=== PATIENT | female | born 1995 | race African-American/Black ===

== ENCOUNTER 2016-07-27 00:05 | Outpatient (CLI) | payer SELFPAY ==
[~2016-07-27] VITALS: Ht 175.3 cm; Wt 114.2 kg
[~2016-07-27 00:05] MED LIST: ALBU18HF INHALATION; CALC600T11 PO; FERR134T PO; PREN1TAB79 PO
[2016-07-27] MEDS ORDERED: TERBUTALINE 1 ML ONE (00:56)
[2016-07-27] MEDS ORDERED: TERBUTALINE 1 MG/ML INJ SC ONE (01:00)
[2016-07-27] MEDS ORDERED: CLINDAMYCIN 900 MG/D5W (PMX) 50 ML IV SCH (01:30)
[2016-07-27] MEDS ORDERED: OXYTOCIN 30 UNITS/LR 500 ML IV SCH (01:30)
[2016-07-27] MEDS ORDERED: CARBOPROST 250 MCG INJ IM PRN (01:30)
[2016-07-27] MEDS ORDERED: METHYLERGONOVINE 0.2 MG INJ IM PRN (01:30)
[2016-07-27] MEDS ORDERED: MISOPROSTOL 200 MCG TAB PR PRN (01:30)
[2016-07-27] MEDS ORDERED: OXYTOCIN 30 UNITS/LR 500 ML IV PRN (01:30)
--- NOTE | 2016-07-27 01:50 | HP ---
Date/Time of Note Date/Time of Note DATE: 07/27/16 TIME: 01:31 OB - History Hx of Present Free Text/Dictation 21 years old with IUP at 33 weeks and / with limited care at [facility]. and history of PTD in second and 4 th preganncy and contractions in current was admited on 07/12 for 4 days. Presented with painful contractions. Patient had signed AMA in the prior admission. she had been hospitalized for 4 days. received Magnesium for neuroprophylaxis and steriod x 2 doses. Refused ultrasound during her admission. Has been seen and counseled by perinatolovist DR. Griffin and after detailed and prolonged counseling again refused ultrasound. upon presentation to triage. she has been initially examined by RN., a hard strucure in the vagina was palpable but was not clear presentation. Exam repreated by me with the same finding, Shortly after presentation,.gross leakage of clear fluid noted on the chalks. A hard structure noted, could not r/o Breech, or transverse presentation . Patient refused any pelvic or abdominal ultrasound after prolonged counseling regarding risks to the baby in case of unclear presentation as well as risk for head entrapment or neglected shoulder in case of shoulder presenation. She started that she had no ultrasound after 22 weeks and does not wish to have any ultrasound in any circumstances. Past Ob history significant for history of delivery at 29 weeks in second and fourth delivery. Had CD at second and had TOLAC x 2. Had a history of at fourth at 29 weeks. Baby was apparently had cardiac arrythmia and after . Per records from prior admission , apparently there was some arrhythmia in the fetus in current as well and refused any ultrasound evaluation by perinatologist. Patient had been on weekly progesterone injection until 1 month ago at her OB clinic, her last visit was about 3 weeks ago and has not been given any IM progesterone. Patient refused repeat pelvic examination as well as any ultrasound examination after prolonged discussion about the risks to the fetus and her self in case of head entrapment as well as neglected shoulder including but not limited to or , terminal computer operator disability, materal complications and morbiditues including extension of section scar and increased risk for Hysterectomy , claissical section as well as blood transfusion and it;'s complications including but not limited to blood borne infections and transfiusion reacations, After discussion all above risks , patient still refused pelvic examination as well as ultrasound examination for assessment of presentation and candidacy for vaginal delivery. she verbalized understanding all above risks. Patient was advised about Cesrean section, but refused and desired to leave AMA. Other Concerns: labor Active labor Refused pelvic examination and ultrasound evaluation Past Family/Social History * Past Medical, Surgical, Family and Obstetric Histories reviewed from chart. OB Admission Exam Physical Exam HEENT: WNL Amniotic Fluid: Clear Intensity: Moderate OB Assessment/Plan Reason for admission: labor Other Assessment: History of section Declined any intervention including pelvic examination and ultrasound for evaluation after prolonged discussion by me and Dr. Silverman. understands all above risks and desired to leave against medical advise. KISHAN BANKS MD Jul 27, 2016 01:49
[2016-07-27 01:58] LABS: BASOPHIL # 0.1 10^3/ul (0.0-0.1); BASOPHILS % 0.8 % (0.0-2.0); EOSINOPHILS # 0.2 10^3/ul (0.0-0.5); EOSINOPHILS % 2.1 % (0.0-7.0); HEMATOCRIT 36.3 % (37.0-47.0); HEMOGLOBIN 12.2 g/dl (12.0-16.0); LYMPHOCYTES # 2.1 10^3/ul (0.8-2.9); LYMPHOCYTES % 26.2 % (15.0-51.0); MEAN CORPUSCULAR HEMOGLOBIN 30.3 pg (29.0-33.0); MEAN CORPUSCULAR HGB CONC 33.6 g/dl (32.0-37.0); MEAN CORPUSCULAR VOLUME 90.2 fl (82.0-101.0); MEAN PLATELET VOLUME 7.8 fl (7.4-10.4); MONOCYTE # 0.5 10^3/ul (0.3-0.9); MONOCYTES % 6.4 % (0.0-11.0); NEUTROPHIL # 5.2 10^3/ul (1.6-7.5); NEUTROPHILS % 64.5 % (39.0-77.0); PLATELET COUNT 291 10^3/UL (140-440); RED BLOOD COUNT 4.03 10^6/ul (4.20-5.40); RED CELL DISTRIBUTION WIDTH 12.7 % (11.5-14.5)
[2016-07-27] MEDS ORDERED: LACTATED RINGER'S 1,000 ML IV SCH (02:00)
[2016-07-27] MEDS ORDERED: LACTATED RINGER'S 1,000 ML IV PRN (02:00)
[2016-07-27 02:08] LABS: CONDITION 1
[2016-07-27] MEDS ORDERED: morphine SULFATE/PF (10 MG/10 ML) INJ ONE (02:18)
[2016-07-27] MEDS ORDERED: FENTAnyl 50 MCG/ML VIAL ONE (02:18)
[2016-07-27 02:23] LABS: INR 1.04; PROTIME 13.6 Sec (12.2-14.2); PT RATIO 1.1
[2016-07-27 02:24] LABS: PARTIAL THROMBOPLASTIN TIME 28.5 Sec (25.0-35.0)
[2016-07-27 02:55] VITALS: Ht 175.3 cm; Wt 114.2 kg
[2016-07-27 02:56] VITALS: BP 120/75; PULSE 117; RESP 20
--- NOTE | 2016-07-27 04:56 | TRIAGE ---
OB Triage Datetime Report Generated by CPN: 07/27/2016 04:54 Datetime: 07/27/2016 03:35 Stage of : Labor (Annotations: Patient discharged AMA per wheelchair.) Datetime: 07/27/2016 03:10 Stage of : Labor Pain Assessment Pain Scale: 4 Pain Presence: Intermittent Pain Type: Pressure Datetime: 07/27/2016 03:00 Labor Evaluation Frequency: 0 Monitor Mode: External Pattern: Normal: <= 5 Contractions in 10 Minutes Resting Tone [place]: Relaxed Heart Rate FHR Baseline Rate: 145 Monitor Mode: External US Variability: Marked >25 bpm Accelerations: 10X10 Decelerations: None Datetime: 07/27/2016 02:40 Stage of : Labor Datetime: 07/27/2016 02:10 Assessment Type: Admission Assessment Vaginal Bleeding: None Maternal Assessment Level of Consciousness: Fully Conscious DTR's/Clonus: DTRs 2+; No Clonus Headache: Denies Blurred Vision: No Respiratory Effort: Unlabored; Regular Rhythm; Equal Expansion Breath Sounds, Left: Clear and Equal Breath Sounds, Right: Clear and Equal Nausea/Vomiting: Denies RUQ Epigastric Pain: Denies Lower Extremities Edema: None Degree: None Upper Extremities Edema: None Facial Edema: None Fall Risk Assessment History of Falling: (0) No Secondary Diagnosis: (0) No Ambulatory Aid: (0) Bedrest/Nurse Assist IV Therapy: (0) No Gait: (0) Normal/Bedrest/Immobile Mental Status: (0) Oriented to Own Ability Fall Score: 0 Fall Risk Score Definition: No Risk: No action required Labor Evaluation Frequency: irregular Monitor Mode: External Duration (sec)2399: 30-40 Quality: Mild Pattern: Normal: <= 5 Contractions in 10 Minutes Resting Tone [place]: Relaxed Heart Rate FHR Baseline Rate: 145 Monitor Mode: External US Variability: Marked >25 bpm Accelerations: 10X10 Decelerations: None Category: Category II Pain Assessment Pain Scale: 0 Pain Presence: None/Denies Pain Type: N/A Pain Goal: 0 Membrane Status: Intact Datetime: 07/27/2016 01:00 Labor Evaluation Frequency: NONE Monitor Mode: External Pattern: Normal: <= 5 Contractions in 10 Minutes Heart Rate FHR Baseline Rate: 140 Variability: Moderate 6-25 bpm Accelerations: 15X15 Decelerations: None Category: Category I Datetime: 07/27/2016 00:53 Stage of : OB Triage Vaginal Exam Dilatation (cms): 10.0 Effacement (%): 100 Station: 0 Exam By: DR BANKS Membrane Status: Ruptured Membranes Rupture Method: Spontaneous Amniotic Fluid Color: Clear Amniotic Fluid Amount: Moderate Vaginal Bleeding: None Cervix, Position: Midposition Presentation 'A': Other Datetime: 07/27/2016 00:43 Vaginal Bleeding: None Cervix, Consistency: Soft Cervix, Position: Midposition Presentation 'A': Unable to Assess Datetime: 07/27/2016 00:36 Stage of : OB Triage Datetime: 07/27/2016 00:34 Time of Arrival: 07/27/2016 00:03 EGA: 33.3 Arrived By: Ambulatory Chief Complaint: contractions and pressure Movement: Present Contractions: Regular Time Contractions Began: 07/26/2016 17:00 Rupture of Membranes: Denies Vaginal Bleeding: None Vaginal Discharge: Denies Recent Sexual Intercouse: Denies Abdominal Trauma: Not Applicable Patient Complaints: Contractions Time Provider Notified: 07/27/2016 00:36 Provider Notified: ARDALAN Initial Plan: CEFM, CVL, UA, PO HYDRATION Datetime: 07/12/2016 01:12 Stage of : Antepartum Datetime: 07/12/2016 01:02 Headache: Denies Labor Evaluation Frequency: 0 Monitor Mode: External Duration (sec)2399: 0 Resting Tone [place]: Relaxed Heart Rate FHR Baseline Rate: 145 Monitor Mode: External US FHR Baseline Changes: No Baseline Change Variability: Marked >25 bpm Accelerations: 10X10 Decelerations: None Category: Category II Membrane Status: Intact Datetime: 07/12/2016 00:21 Assessment Type: Admission Assessment Vaginal Bleeding: None Maternal Assessment Level of Consciousness: Fully Conscious DTR's/Clonus: DTRs 2+; No Clonus Headache: Denies Blurred Vision: No Respiratory Effort: Unlabored; Regular Rhythm; Equal Expansion Breath Sounds, Left: Clear and Equal Breath Sounds, Right: Clear and Equal Nausea/Vomiting: Denies RUQ Epigastric Pain: Denies Lower Extremities Edema: None Degree: None Upper Extremities Edema: None Facial Edema: None Fall Risk Assessment History of Falling: (0) No Secondary Diagnosis: (0) No Ambulatory Aid: (0) Bedrest/Nurse Assist IV Therapy: (0) No Gait: (0) Normal/Bedrest/Immobile Mental Status: (0) Oriented to Own Ability Fall Score: 0 Fall Risk Score Definition: No Risk: No action required Labor Evaluation Frequency: 0 Duration (sec)2399: 0 Heart Rate FHR Baseline Rate: 145 Variability: Marked >25 bpm Accelerations: 10X10 Decelerations: None Category: Category II Pain Assessment Pain Scale: 0 Pain Presence: None/Denies Pain Type: N/A Pain Goal: 0 Pain Assessment Comments: PT STATES OCCASIONAL CHEST PAIN 5/10 ON INSPIRATION Membrane Status: Intact Datetime: 07/12/2016 00:00 Maternal Assessment Level of Consciousness: Fully Conscious DTR's/Clonus: DTRs 2+ Headache: Denies Blurred Vision: No Respiratory Effort: Unlabored Breath Sounds, Left: Clear and Equal Breath Sounds, Right: Clear and Equal Nausea/Vomiting: Denies RUQ Epigastric Pain: Denies Facial Edema: None Labor Evaluation Frequency: 0 Monitor Mode: External Intensity IUP (mmHg): 0 Resting Tone [place]: Relaxed Interventions: Side to Side Contraction Comments: PT STATES NO PAIN OR PRESSURE FELT Heart Rate FHR Baseline Rate: 145 Monitor Mode: External US FHR Baseline Changes: No Baseline Change Variability: Marked >25 bpm Accelerations: 10X10 Decelerations: None Category: Category II Comments: ARYTHMIA NOTED Pain Assessment Pain Scale: 0 Pain Presence: None/Denies Pain Type: N/A Membrane Status: Intact Datetime: 07/11/2016 23:19 Comments: report given to Miller RN Datetime: 07/11/2016 23:00 Maternal Assessment Level of Consciousness: Fully Conscious DTR's/Clonus: No Clonus Headache: Denies Blurred Vision: No Nausea/Vomiting: Denies RUQ Epigastric Pain: Denies Facial Edema: None Labor Evaluation Frequency: 0 Pattern: Normal: <= 5 Contractions in 10 Minutes Resting Tone [place]: Relaxed Heart Rate FHR Baseline Rate: 140 Monitor Mode: External US Variability: Moderate 6-25 bpm Decelerations: None Comments: MD Ellison made aware of the tracing Pain Assessment Pain Scale: 0 Pain Presence: None/Denies Pain Type: N/A Membrane Status: Intact Datetime: 07/11/2016 22:00 Labor Evaluation Frequency: 0 Pattern: Normal: <= 5 Contractions in 10 Minutes Resting Tone [place]: Relaxed Contraction Comments: ABDOMEN SOFT ON PALPATION Heart Rate FHR Baseline Rate: 140 Monitor Mode: External US Variability: Moderate 6-25 bpm Decelerations: None Comments: STRIP REVIEWD BY DR ELLISON. Datetime: 07/11/2016 21:05 Stage of : OB Triage Assessment Type: Triage Maternal Assessment Level of Consciousness: Fully Conscious DTR's/Clonus: DTRs 2+; No Clonus Headache: Denies Blurred Vision: No Respiratory Effort: Unlabored; Regular Rhythm; Equal Expansion Nausea/Vomiting: Denies RUQ Epigastric Pain: Denies Facial Edema: None Temperature Route: Oral Fall Risk Assessment History of Falling: (0) No Secondary Diagnosis: (0) No Ambulatory Aid: (0) Bedrest/Nurse Assist IV Therapy: (0) No Gait: (0) Normal/Bedrest/Immobile Mental Status: (0) Oriented to Own Ability Fall Score: 0 Fall Risk Score Definition: No Risk: No action required Datetime: 07/11/2016 21:00 Time of Arrival: 07/11/2016 21:00 EGA: 31.1 Arrived By: Transfer Arrived From: Emergency Dept Chief Complaint: Sob, PAIN AT THE CHEST AREA WHEN BREATHING. pt has been seen by ER where a EKG was done. DR Ellison notified of EKG results and patient status Movement: Present Contractions: Denies/Absent Rupture of Membranes: Denies Vaginal Bleeding: None Vaginal Discharge: Denies Recent Sexual Intercouse: Denies Abdominal Trauma: Not Applicable Patient Complaints: Shortness of Breath; Other Time Provider Notified: 07/11/2016 21:00 Provider Notified: reiche Initial Plan: MONITORS APPLY, CALL MD Datetime: 07/05/2016 14:37 Labor Evaluation Frequency: NO UC;S NOTED AT THIS TIME Monitor Mode: External Resting Tone [place]: Relaxed Heart Rate FHR Baseline Rate: 125 Monitor Mode: External US Variability: Moderate 6-25 bpm Accelerations: 15X15 Decelerations: None Category: Category I Pain Assessment Pain Scale: 5 Pain Presence: Intermittent Pain Type: Cramping; Dull Pain Location: Abdomen; Back Pain Goal: 2 Pain Relief Measures: Comfort Measures Datetime: 07/05/2016 14:15 Labor Evaluation Frequency: NO UC'S NOTED AT THIS TIME Monitor Mode: External Duration (sec)2399: Resting Tone [place]: Relaxed Resting Tone IUP (mmHg): Heart Rate FHR Baseline Rate: 125 Monitor Mode: External US FHR Baseline Changes: No Baseline Change Variability: Moderate 6-25 bpm Accelerations: 15X15 Decelerations: None Category: Category I Comments: loss contact due to position Datetime: 07/05/2016 13:00 Labor Evaluation Frequency: NO UC'S NOTED AT THIS TIME Monitor Mode: External Resting Tone [place]: Relaxed Heart Rate FHR Baseline Rate: 120 Monitor Mode: External US Variability: Moderate 6-25 bpm Accelerations: 15X15 Decelerations: None Category: Category I Datetime: 07/05/2016 11:59 Labor Evaluation Frequency: NO UC'S NOTED AT THIS TIME Monitor Mode: External Resting Tone [place]: Relaxed Heart Rate FHR Baseline Rate: 120 Monitor Mode: External US Variability: Moderate 6-25 bpm Accelerations: 15X15 Decelerations: None Category: Category I Datetime: 07/05/2016 11:48 Maternal Assessment Level of Consciousness: Fully Conscious DTR's/Clonus: No Clonus Headache: Denies Blurred Vision: No Nausea/Vomiting: Denies RUQ Epigastric Pain: Denies Facial Edema: None Datetime: 07/05/2016 11:42 Comments: LOSS OF CONTACT MATERNAL PULSE NOTED Datetime: 07/05/2016 11:00 Labor Evaluation Frequency: NO UC'S NOTED AT THIS TIME Monitor Mode: External Resting Tone [place]: Relaxed Heart Rate FHR Baseline Rate: 115 Monitor Mode: External US Variability: Moderate 6-25 bpm Accelerations: 15X15 Decelerations: None Datetime: 07/05/2016 10:00 Labor Evaluation Frequency: NO UC'S NOTED AT THIS TIME Monitor Mode: External Resting Tone [place]: Relaxed Heart Rate FHR Baseline Rate: 115 Monitor Mode: External US Variability: Moderate 6-25 bpm Decelerations: Variable Datetime: 07/05/2016 09:10 Stage of : Labor Datetime: 07/05/2016 08:56 Labor Evaluation Frequency: NO UC'S NOTED AT THIS TIME Monitor Mode: External Resting Tone [place]: Relaxed Monitor Mode: External US Variability: Moderate 6-25 bpm Decelerations: Variable Category: Category II Datetime: 07/05/2016 08:38 Pain Assessment Pain Scale: 5 Pain Presence: Intermittent Pain Type: Cramping; Contraction Pain Location: Abdomen; Back Pain Goal: 2 Pain Relief Measures: Comfort Measures Datetime: 07/05/2016 08:28 Interventions: Side to Side Datetime: 07/05/2016 08:26 Maternal Assessment Level of Consciousness: Fully Conscious DTR's/Clonus: DTRs 2+; No Clonus Headache: Denies Blurred Vision: No Nausea/Vomiting: Denies RUQ Epigastric Pain: Denies Facial Edema: None Datetime: 07/05/2016 08:12 Stage of : Labor Datetime: 07/05/2016 07:49 Interventions: Side to Side Datetime: 07/05/2016 07:32 Heart Rate FHR Baseline Rate: 120 Monitor Mode: External US Variability: Moderate 6-25 bpm Comments: UNABLE TO KEEP BABY ON MONITOR AUDIBLE FHR NOTED AT 120 VIA U/S EXTERNAL MONITOR Datetime: 07/05/2016 07:30 Assessment Type: Ongoing Assessment Maternal Assessment Level of Consciousness: Fully Conscious DTR's/Clonus: DTRs 2+; No Clonus Headache: Denies Blurred Vision: No Respiratory Effort: Unlabored; Regular Rhythm; Equal Expansion Breath Sounds, Left: Clear and Equal Breath Sounds, Right: Clear and Equal Nausea/Vomiting: Denies RUQ Epigastric Pain: Denies Lower Extremities Edema: None Degree: None Upper Extremities Edema: None Degree: None Facial Edema: None Fall Risk Assessment History of Falling: (0) No Secondary Diagnosis: (0) No Ambulatory Aid: (0) Bedrest/Nurse Assist Gait: (0) Normal/Bedrest/Immobile Mental Status: (0) Oriented to Own Ability Datetime: 07/05/2016 06:30 Heart Rate FHR Baseline Rate: 130 Monitor Mode: Doppler Datetime: 07/05/2016 06:00 Heart Rate FHR Baseline Rate: 130 Monitor Mode: Doppler Datetime: 07/05/2016 05:46 Stage of : Labor Monitor Mode: External Contraction Comments: HAVE BEEN ADJUSTING PATIENT'S US EVERY FEW MINUTES WITH NO SUCCESS. FHTS AUD IBLE AT 120S BUT UNABLE TO KEEP BABY ON THE MONITOR. Datetime: 07/05/2016 05:00 Heart Rate FHR Baseline Rate: 130 Monitor Mode: Doppler Datetime: 07/05/2016 04:44 Monitor Mode: External US Datetime: 07/05/2016 04:04 Comments: at bedside trying to adjust u_s to hot die picker fht's Datetime: 07/05/2016 04:01 Labor Evaluation Frequency: none Monitor Mode: External Pattern: Normal: <= 5 Contractions in 10 Minutes Resting Tone [place]: Relaxed Heart Rate FHR Baseline Rate: 125 Monitor Mode: External US Datetime: 07/05/2016 03:05 Labor Evaluation Frequency: none Monitor Mode: External Resting Tone [place]: Relaxed Heart Rate FHR Baseline Rate: 135 Monitor Mode: External US FHR Baseline Changes: No Baseline Change Comments: unable to keep continuous tracing of fht's, u_s readjusted Datetime: 07/05/2016 02:00 Labor Evaluation Frequency: NONE Monitor Mode: External Pattern: Normal: <= 5 Contractions in 10 Minutes Resting Tone [place]: Relaxed Heart Rate FHR Baseline Rate: 130 Monitor Mode: External US Variability: Moderate 6-25 bpm Decelerations: None Category: Category I Pain Assessment Pain Scale: 5 Pain Presence: Intermittent Pain Type: Pressure; Ache Pain Location: Abdomen; Back; Perineum Pain Relief Measures: Comfort Measures Pain Assessment Comments: RESTING Datetime: 07/05/2016 01:00 Labor Evaluation Frequency: NONE Monitor Mode: External Pattern: Normal: <= 5 Contractions in 10 Minutes Resting Tone [place]: Relaxed Heart Rate FHR Baseline Rate: 130 Monitor Mode: External US Variability: Moderate 6-25 bpm Accelerations: 15X15 Decelerations: None Category: Category I Datetime: 07/05/2016 00:01 Labor Evaluation Frequency: X1 Monitor Mode: External Duration (sec)2399: 50 Pattern: Normal: <= 5 Contractions in 10 Minutes Resting Tone [place]: Relaxed Heart Rate FHR Baseline Rate: 130 Monitor Mode: External US Variability: Moderate 6-25 bpm Accelerations: 15X15 Decelerations: None Category: Category I Pain Assessment Pain Scale: 8 Pain Presence: Constant Pain Type: Pressure; Ache Pain Location: Abdomen; Back; Perineum Pain Relief Measures: Comfort Measures Datetime: 07/04/2016 23:21 Pool: Negative Datetime: 07/04/2016 23:19 Vaginal Exam Dilatation (cms): 0.0 Exam By: DR.REICHE Vaginal Bleeding: None Cervix, Consistency: Soft Datetime: 07/04/2016 23:00 Labor Evaluation Frequency: OCCASIONAL Monitor Mode: External Duration (sec)2399: 40-70 Pattern: Normal: <= 5 Contractions in 10 Minutes Resting Tone [place]: Relaxed Heart Rate FHR Baseline Rate: 130 Monitor Mode: External US Variability: Moderate 6-25 bpm Accelerations: 15X15 Decelerations: None Category: Category I Pain Assessment Pain Scale: 8 Pain Presence: Constant Pain Type: Pressure; Ache Pain Location: Abdomen; Back; Perineum Pain Relief Measures: Comfort Measures Datetime: 07/04/2016 22:25 Exam By: EDITA, RN Cervix, Consistency: Soft Datetime: 07/04/2016 22:01 Monitor Mode: External Pattern: Normal: <= 5 Contractions in 10 Minutes Resting Tone [place]: Relaxed Contraction Comments: NO CONTRACTIONS NOTED UPON PALPATION Heart Rate FHR Baseline Rate: 130 Monitor Mode: External US Variability: Moderate 6-25 bpm Accelerations: 10X10 Decelerations: None Category: Category I Pain Assessment Pain Scale: 8 Pain Presence: Intermittent Pain Type: Pressure; Ache Pain Location: Abdomen; Back; Perineum Pain Relief Measures: Comfort Measures Datetime: 07/04/2016 21:52 Contraction Comments: Patient's hands on stomach. Requested for patient not to touch stomach due t o difficulty reading contractions. Datetime: 07/04/2016 21:01 Monitor Mode: External Pattern: Normal: <= 5 Contractions in 10 Minutes Resting Tone [place]: Relaxed Contraction Comments: unable to determine contractions. Heart Rate FHR Baseline Rate: 130 Monitor Mode: External US Variability: Moderate 6-25 bpm Accelerations: 10X10 Decelerations: None Category: Category I Pain Assessment Pain Scale: 8 Pain Presence: Constant Pain Type: Pressure; Ache Pain Location: Abdomen; Back; Perineum Pain Relief Measures: Comfort Measures Datetime: 07/04/2016 20:19 Pain Assessment Pain Scale: 8 Pain Presence: Constant Pain Type: Pressure; Ache Pain Location: Abdomen; Back; Perineum Pain Relief Measures: Comfort Measures Pain Assessment Comments: THERAPEUTIC TOUCH AND EMOTIONAL SUPPORT GIVEN TO PATIENT. Datetime: 07/04/2016 20:00 Assessment Type: Ongoing Assessment Maternal Assessment Level of Consciousness: Fully Conscious DTR's/Clonus: DTRs 2+; No Clonus Headache: Denies Blurred Vision: No Respiratory Effort: Unlabored; Regular Rhythm; Equal Expansion Breath Sounds, Left: Clear and Equal Breath Sounds, Right: Clear and Equal Nausea/Vomiting: Denies RUQ Epigastric Pain: Denies Lower Extremities Edema: None Degree: None Upper Extremities Edema: None Degree: None Facial Edema: None Temperature Route: Oral Fall Risk Assessment History of Falling: (0) No Secondary Diagnosis: (0) No Ambulatory Aid: (0) Bedrest/Nurse Assist IV Therapy: (20) Yes Gait: (0) Normal/Bedrest/Immobile Mental Status: (0) Oriented to Own Ability Fall Score: 20 Fall Risk Score Definition: No Risk: No action required Monitor Mode: External Pattern: Normal: <= 5 Contractions in 10 Minutes Resting Tone [place]: Relaxed Contraction Comments: unable to determine contractions. Heart Rate FHR Baseline Rate: 135 Monitor Mode: External US Variability: Moderate 6-25 bpm Accelerations: 10X10 Decelerations: None Category: Category I Pain Presence: Constant Pain Type: Pressure; Ache Pain Location: Abdomen; Back; Perineum Pain Relief Measures: Comfort Measures Datetime: 07/04/2016 18:53 Labor Evaluation Frequency: 2-4 Monitor Mode: External Duration (sec)2399: 30-50 Quality: Mild Pattern: Normal: <= 5 Contractions in 10 Minutes Resting Tone [place]: Relaxed Heart Rate FHR Baseline Rate: 135 Monitor Mode: External US FHR Baseline Changes: No Baseline Change Variability: Moderate 6-25 bpm Accelerations: 15X15 Decelerations: None Category: Category I Pain Assessment Pain Scale: 7 Pain Presence: Intermittent Pain Type: Cramping Pain Location: Abdomen Pain Relief Measures: Comfort Measures Datetime: 07/04/2016 18:32 Vaginal Exam Dilatation (cms): 0.0 Effacement (%): 50 Station: -3 Exam By: DR HENRRY Datetime: 07/04/2016 18:07 Stage of : Labor Assessment Type: Admission Assessment Vaginal Bleeding: None Maternal Assessment Level of Consciousness: Fully Conscious Maternal Assessment Level of Consciousness: Fully Conscious DTR's/Clonus: DTRs 2+; No Clonus DTR's/Clonus: DTRs 2+; No Clonus Headache: Denies Headache: Denies Blurred Vision: No Blurred Vision: No Respiratory Effort: Unlabored; Regular Rhythm; Equal Expansion Breath Sounds, Left: Clear and Equal Breath Sounds, Right: Clear and Equal Nausea/Vomiting: Denies Nausea/Vomiting: Denies RUQ Epigastric Pain: Denies RUQ Epigastric Pain: Denies Lower Extremities Edema: None Degree: None Upper Extremities Edema: None Degree: None Facial Edema: None Facial Edema: None Fall Risk Assessment History of Falling: (0) No Secondary Diagnosis: (0) No Ambulatory Aid: (0) Bedrest/Nurse Assist IV Therapy: (0) No Gait: (0) Normal/Bedrest/Immobile Mental Status: (0) Oriented to Own Ability Fall Score: 0 Fall Risk Score Definition: No Risk: No action required Labor Evaluation Frequency: 3-6 Monitor Mode: External Duration (sec)2399: 20-50 Quality: Mild Pattern: Normal: <= 5 Contractions in 10 Minutes Resting Tone [place]: Relaxed Heart Rate FHR Baseline Rate: 135 Monitor Mode: External US FHR Baseline Changes: No Baseline Change Variability: Moderate 6-25 bpm Accelerations: 15X15 Decelerations: None Category: Category I Pain Assessment Pain Scale: 9 Pain Presence: Intermittent Pain Type: Cramping Pain Location: Abdomen Pain Relief Measures: Comfort Measures Datetime: 07/04/2016 16:17 Stage of : Antepartum Datetime: 07/04/2016 15:57 Pain Assessment Pain Scale: 7 Pain Presence: Intermittent Pain Type: Contraction Pain Location: Abdomen; Right Buttock; Left Buttock Pain Relief Measures: Comfort Measures Pain Assessment Comments: laborist notified Datetime: 07/04/2016 15:47 Labor Evaluation Frequency: 1-10 Monitor Mode: External Duration (sec)2399: 40-60 Quality: Mild Pattern: Normal: <= 5 Contractions in 10 Minutes Resting Tone [place]: Relaxed Heart Rate FHR Baseline Rate: 130 Monitor Mode: External US FHR Baseline Changes: No Baseline Change Variability: Moderate 6-25 bpm Decelerations: None Category: Category I Datetime: 07/04/2016 15:00 Labor Evaluation Frequency: 5/60 Monitor Mode: External Duration (sec)2399: 40-60 Quality: Mild Pattern: Normal: <= 5 Contractions in 10 Minutes Resting Tone [place]: Relaxed Heart Rate FHR Baseline Rate: 140 Monitor Mode: External US FHR Baseline Changes: No Baseline Change Variability: Moderate 6-25 bpm Decelerations: None Category: Category I Datetime: 07/04/2016 14:00 Labor Evaluation Frequency: 4/60 Monitor Mode: External Quality: Mild Pattern: Normal: <= 5 Contractions in 10 Minutes Resting Tone [place]: Relaxed Contraction Comments: irritability Heart Rate FHR Baseline Rate: 145 Monitor Mode: External US FHR Baseline Changes: No Baseline Change Variability: Moderate 6-25 bpm Decelerations: None Category: Category I Datetime: 07/04/2016 13:00 Heart Rate FHR Baseline Rate: 145 Monitor Mode: External US FHR Baseline Changes: No Baseline Change Variability: Moderate 6-25 bpm Decelerations: None Category: Category I Datetime: 07/04/2016 12:59 Labor Evaluation Frequency: 2/60 Monitor Mode: External Duration (sec)2399: 40-60 Quality: Mild Pattern: Normal: <= 5 Contractions in 10 Minutes Resting Tone [place]: Relaxed Contraction Comments: irritability present Datetime: 07/04/2016 12:17 Comments: back on monitor after shower Datetime: 07/04/2016 11:50 Labor Evaluation Frequency: 0 Quality: Mild Pattern: Normal: <= 5 Contractions in 10 Minutes Resting Tone [place]: Relaxed Heart Rate FHR Baseline Rate: 135 Monitor Mode: External US FHR Baseline Changes: No Baseline Change Variability: Moderate 6-25 bpm Decelerations: None Category: Category I Datetime: 07/04/2016 11:00 Labor Evaluation Frequency: 0 Monitor Mode: External Quality: Mild Pattern: Normal: <= 5 Contractions in 10 Minutes Resting Tone [place]: Relaxed Heart Rate FHR Baseline Rate: 135 FHR Baseline Changes: No Baseline Change Variability: Moderate 6-25 bpm Decelerations: None Datetime: 07/04/2016 10:00 Labor Evaluation Frequency: 0 Resting Tone [place]: Relaxed Contraction Comments: no contractions Heart Rate FHR Baseline Rate: 135 Monitor Mode: External US FHR Baseline Changes: No Baseline Change Variability: Moderate 6-25 bpm Datetime: 07/04/2016 09:16 Stage of : Antepartum Assessment Type: Ongoing Assessment Maternal Assessment Level of Consciousness: Fully Conscious DTR's/Clonus: DTRs 2+; No Clonus Headache: Denies Blurred Vision: No Respiratory Effort: Unlabored; Regular Rhythm; Equal Expansion Breath Sounds, Left: Clear and Equal Breath Sounds, Right: Clear and Equal Nausea/Vomiting: Denies RUQ Epigastric Pain: Denies Facial Edema: None Temperature Route: Oral Fall Risk Assessment History of Falling: (0) No Secondary Diagnosis: (0) No Ambulatory Aid: (0) Bedrest/Nurse Assist IV Therapy: (0) No Gait: (0) Normal/Bedrest/Immobile Mental Status: (0) Oriented to Own Ability Fall Score: 0 Fall Risk Score Definition: No Risk: No action required Datetime: 07/04/2016 09:00 Labor Evaluation Frequency: 0 Pattern: Normal: <= 5 Contractions in 10 Minutes Resting Tone [place]: Relaxed Heart Rate FHR Baseline Rate: 135 Monitor Mode: External US FHR Baseline Changes: No Baseline Change Variability: Moderate 6-25 bpm Decelerations: None Category: Category I Datetime: 07/04/2016 08:00 Labor Evaluation Frequency: 0 Monitor Mode: External Resting Tone [place]: Relaxed Heart Rate FHR Baseline Rate: 135 FHR Baseline Changes: No Baseline Change Variability: Moderate 6-25 bpm Decelerations: None Category: Category I Comments: periods of apparent marked variability Datetime: 07/04/2016 07:00 Labor Evaluation Frequency: 0 Monitor Mode: External Heart Rate FHR Baseline Rate: 130 Monitor Mode: External US FHR Baseline Changes: No Baseline Change Comments: MANY ATTEMPTS FOR SOLID, CLEAR TRACING. DIFFICULT TO ASCERTAIN VARIABILTY VS BL. Datetime: 07/04/2016 06:00 Labor Evaluation Frequency: 0 Monitor Mode: External Monitor Mode: External US Comments: POOR QUALITY WHILE SLEEPING ON HER LEFT SIDE Datetime: 07/04/2016 04:07 Maternal Assessment Level of Consciousness: SLEEPING DTR's/Clonus: DTRs 1+ Breath Sounds, Left: Clear and Equal Breath Sounds, Right: Clear and Equal Temperature Route: Oral Pain Assessment Pain Scale: 0 Pain Goal: 0 Datetime: 07/04/2016 04:00 Labor Evaluation Frequency: 0 Monitor Mode: External Monitor Mode: External US Comments: POOR QUALITY WHILE SLEEPING ON HER SIDE Datetime: 07/04/2016 03:00 Labor Evaluation Frequency: 0 Monitor Mode: External Monitor Mode: External US Comments: POOR QUALITY Datetime: 07/04/2016 02:00 Labor Evaluation Frequency: 0 Monitor Mode: External Heart Rate FHR Baseline Rate: 140 Monitor Mode: External US Comments: POOR QUALITY Datetime: 07/04/2016 01:00 Labor Evaluation Frequency: 0 Monitor Mode: External Heart Rate FHR Baseline Rate: 135 Monitor Mode: External US FHR Baseline Changes: No Baseline Change Variability: Marked >25 bpm Accelerations: 15X15 Decelerations: None Category: Category II Datetime: 07/04/2016 00:00 Labor Evaluation Frequency: 0 Monitor Mode: External Datetime: 07/03/2016 23:00 Labor Evaluation Frequency: 0 Monitor Mode: External Heart Rate FHR Baseline Rate: 140 Monitor Mode: External US Comments: POOR QUALITY Datetime: 07/03/2016 22:30 Maternal Assessment Level of Consciousness: Fully Conscious DTR's/Clonus: DTRs 1+ Breath Sounds, Left: Clear and Equal Breath Sounds, Right: Clear and Equal Datetime: 07/03/2016 22:00 Labor Evaluation Frequency: 0 Monitor Mode: External Heart Rate FHR Baseline Rate: 140 Monitor Mode: External US FHR Baseline Changes: No Baseline Change Variability: Marked >25 bpm Accelerations: 15X15 Decelerations: None Category: Category II Comments: DIFFICULT TO DETERMINE VARIABILITY VS BL Datetime: 07/03/2016 21:00 Labor Evaluation Frequency: 0 Monitor Mode: External Heart Rate FHR Baseline Rate: 140 Monitor Mode: External US FHR Baseline Changes: No Baseline Change Variability: Marked >25 bpm Accelerations: 15X15 Decelerations: None Category: Category II Comments: DIIFFICULT TO DETERMINE VARIABILITY Datetime: 07/03/2016 20:10 Maternal Assessment Level of Consciousness: Fully Conscious DTR's/Clonus: DTRs 2+; No Clonus Headache: Denies Blurred Vision: No Respiratory Effort: Unlabored; Regular Rhythm; Equal Expansion Breath Sounds, Left: Clear and Equal Breath Sounds, Right: Clear and Equal Nausea/Vomiting: Denies RUQ Epigastric Pain: Denies Lower Extremities Edema: None Upper Extremities Edema: None Facial Edema: None Fall Risk Assessment History of Falling: (0) No Secondary Diagnosis: (0) No Ambulatory Aid: (0) Bedrest/Nurse Assist IV Therapy: (20) Yes Gait: (0) Normal/Bedrest/Immobile Mental Status: (0) Oriented to Own Ability Fall Score: 20 Fall Risk Score Definition: No Risk: No action required Datetime: 07/03/2016 20:06 Temperature Route: Oral Pain Assessment Pain Scale: 5 Pain Presence: Constant Pain Type: Pressure; Ache Pain Location: Abdomen; Back Pain Goal: 3 Pain Relief Measures: Comfort Measures Datetime: 07/03/2016 19:59 Labor Evaluation Frequency: 0 Monitor Mode: External Heart Rate FHR Baseline Rate: 140 Monitor Mode: External US FHR Baseline Changes: No Baseline Change Variability: Marked >25 bpm Accelerations: 15X15 Decelerations: None Category: Category II Comments: DIFFICULT TO DETERMINE VARIABILTY IT IS NOT A CLEAN TRACING BUT LOOKS THE SAME THRU [facility] [place]. Datetime: 07/03/2016 19:15 Stage of : Antepartum Datetime: 07/03/2016 19:02 Stage of : Antepartum Maternal Assessment Level of Consciousness: Fully Conscious Headache: Denies Nausea/Vomiting: Denies RUQ Epigastric Pain: Denies Labor Evaluation Frequency: 0/hr Monitor Mode: External Heart Rate FHR Baseline Rate: 135 Monitor Mode: External US Variability: moderate to marked throughout shift. Decelerations: None Vaginal Bleeding: None Datetime: 07/03/2016 18:11 Stage of : Antepartum Maternal Assessment Level of Consciousness: Fully Conscious Headache: Denies Nausea/Vomiting: Denies RUQ Epigastric Pain: Denies Labor Evaluation Frequency: 0/hr Monitor Mode: External Heart Rate FHR Baseline Rate: 135 Monitor Mode: External US Variability: moderate to marked throughout shift. Decelerations: None Vaginal Bleeding: None Datetime: 07/03/2016 17:02 Stage of : Antepartum Maternal Assessment Level of Consciousness: Fully Conscious Headache: Denies Nausea/Vomiting: Denies RUQ Epigastric Pain: Denies Labor Evaluation Frequency: 0/hr Monitor Mode: External Heart Rate FHR Baseline Rate: 135 Monitor Mode: External US Variability: moderate to marked throughout shift. Decelerations: None Pain Assessment Pain Scale: 0 Pain Presence: None/Denies Vaginal Bleeding: None Datetime: 07/03/2016 16:30 Pain Presence: None/Denies Datetime: 07/03/2016 16:18 Pain Presence: None/Denies Datetime: 07/03/2016 16:10 Stage of : Antepartum Maternal Assessment Level of Consciousness: Fully Conscious DTR's/Clonus: DTRs 2+ Headache: Denies Nausea/Vomiting: Denies RUQ Epigastric Pain: Denies (Annotations: resolved w/ bicitra) Labor Evaluation Frequency: 0/hr Monitor Mode: External Heart Rate FHR Baseline Rate: 135 Monitor Mode: External US Variability: Marked >25 bpm Accelerations: 15X15 Decelerations: None (Annotations: no audible decels noted) Pain Assessment Pain Scale: 0 Pain Presence: None/Denies Pain Assessment Comments: epigastric pain is resolved Vaginal Bleeding: None Datetime: 07/03/2016 15:04 Stage of : Antepartum Maternal Assessment Level of Consciousness: Fully Conscious DTR's/Clonus: DTRs 2+ Headache: Denies Breath Sounds, Left: Clear and Equal Breath Sounds, Right: Clear and Equal Nausea/Vomiting: Denies RUQ Epigastric Pain: Present Datetime: 07/03/2016 15:00 Pain Assessment Pain Scale: 4 Pain Type: Burning Pain Assessment Comments: epigastric Datetime: 07/03/2016 14:59 Comments: visible movements and palpated by rn Datetime: 07/03/2016 14:52 Comments: increased movements Datetime: 07/03/2016 14:02 Stage of : Antepartum Maternal Assessment Level of Consciousness: Fully Conscious Headache: Denies Nausea/Vomiting: Denies RUQ Epigastric Pain: Denies Labor Evaluation Frequency: 0/hr Monitor Mode: External Heart Rate FHR Baseline Rate: 125 Monitor Mode: External US Variability: Marked >25 bpm Accelerations: 15X15 Comments: audible arrythmia and tracing is not smooth and continous Pain Assessment Pain Scale: 0 Pain Presence: None/Denies Vaginal Bleeding: None Datetime: 07/03/2016 13:23 Resting Tone [place]: Relaxed Comments: baby difficlt to monitor w/ movements. rn palpates movements Comments: visible movement noted by rn Pain Presence: None/Denies Datetime: 07/03/2016 13:21 Stage of : Antepartum Temperature Route: Oral Datetime: 07/03/2016 13:16 Stage of : Antepartum Maternal Assessment Level of Consciousness: Fully Conscious Headache: Denies Nausea/Vomiting: Denies RUQ Epigastric Pain: Denies Labor Evaluation Frequency: 0/hr Monitor Mode: External Heart Rate FHR Baseline Rate: 135 Monitor Mode: External US Variability: Marked >25 bpm Accelerations: 15X15 Pain Assessment Pain Scale: 0 Pain Presence: None/Denies Vaginal Bleeding: None Datetime: 07/03/2016 12:16 Stage of : Antepartum Maternal Assessment Level of Consciousness: Fully Conscious Headache: Denies Nausea/Vomiting: Denies RUQ Epigastric Pain: Denies Labor Evaluation Frequency: 0/hr Monitor Mode: External Heart Rate FHR Baseline Rate: 135 Monitor Mode: External US Variability: Marked >25 bpm Accelerations: 15X15 Pain Assessment Pain Scale: 0 Pain Presence: None/Denies Vaginal Bleeding: None Datetime: 07/03/2016 11:17 Stage of : Antepartum Maternal Assessment Level of Consciousness: Fully Conscious DTR's/Clonus: DTRs 2+ Headache: Denies Nausea/Vomiting: Denies RUQ Epigastric Pain: Denies Labor Evaluation Frequency: 0/hr Monitor Mode: External Heart Rate FHR Baseline Rate: 135 Monitor Mode: External US Variability: Marked >25 bpm Accelerations: 15X15 Decelerations: None Pain Assessment Pain Scale: 0 Pain Presence: None/Denies Vaginal Bleeding: None Datetime: 07/03/2016 10:52 Pain Presence: None/Denies Datetime: 07/03/2016 10:16 Stage of : Antepartum Maternal Assessment Level of Consciousness: Fully Conscious Headache: Denies Nausea/Vomiting: Denies RUQ Epigastric Pain: Denies Labor Evaluation Frequency: 0/hr Monitor Mode: External Heart Rate FHR Baseline Rate: 135 Monitor Mode: External US Variability: Moderate 6-25 bpm (Annotations: audible arrythmia) Accelerations: 15X15 Decelerations: None Pain Assessment Pain Scale: 0 Pain Presence: None/Denies Vaginal Bleeding: None Datetime: 07/03/2016 09:24 Comments: possible audible arrythmia heard by lissette rn and dr. crouch Datetime: 07/03/2016 09:18 Assessment Type: Ongoing Assessment Maternal Assessment Level of Consciousness: Fully Conscious DTR's/Clonus: DTRs 2+ Headache: Denies Blurred Vision: No Respiratory Effort: Unlabored Breath Sounds, Left: Clear and Equal Breath Sounds, Right: Clear and Equal Nausea/Vomiting: Denies RUQ Epigastric Pain: Denies Lower Extremities Edema: None Upper Extremities Edema: None Facial Edema: None Fall Risk Assessment History of Falling: (0) No Secondary Diagnosis: (0) No Ambulatory Aid: (0) Bedrest/Nurse Assist IV Therapy: (20) Yes Gait: (0) Normal/Bedrest/Immobile Mental Status: (0) Oriented to Own Ability Fall Score: 20 Fall Risk Score Definition: No Risk: No action required Datetime: 07/03/2016 08:30 Stage of : Antepartum Assessment Type: Ongoing Assessment Maternal Assessment Level of Consciousness: Fully Conscious DTR's/Clonus: DTRs Absent Headache: Denies Blurred Vision: No Respiratory Effort: Unlabored; Regular Rhythm; Equal Expansion Breath Sounds, Left: Clear and Equal Breath Sounds, Right: Clear and Equal Nausea/Vomiting: Denies RUQ Epigastric Pain: Denies Lower Extremities Edema: None Upper Extremities Edema: None Facial Edema: None Fall Risk Assessment History of Falling: (0) No Secondary Diagnosis: (0) No Ambulatory Aid: (0) Bedrest/Nurse Assist IV Therapy: (20) Yes Gait: (0) Normal/Bedrest/Immobile Mental Status: (0) Oriented to Own Ability Fall Score: 20 Fall Risk Score Definition: No Risk: No action required Datetime: 07/03/2016 08:00 Maternal Assessment Level of Consciousness: Fully Conscious DTR's/Clonus: DTRs 1+ Headache: Denies Blurred Vision: No Nausea/Vomiting: Denies RUQ Epigastric Pain: Denies Facial Edema: None Labor Evaluation Frequency: 6-12 Monitor Mode: External Duration (sec)2399: 10-30 Quality: Mild Resting Tone [place]: Relaxed Heart Rate FHR Baseline Rate: 130 Monitor Mode: External US Variability: Moderate 6-25 bpm Accelerations: 15X15 Category: Category I Pain Assessment Pain Scale: 2 Pain Presence: Intermittent Pain Type: Cramping Pain Location: Abdomen Pain Goal: 3 Pain Relief Measures: Comfort Measures Pain Assessment Comments: "they come and go" Datetime: 07/03/2016 07:00 Stage of : Antepartum Maternal Assessment Level of Consciousness: Fully Conscious DTR's/Clonus: DTRs 2+ Breath Sounds, Left: Clear and Equal Breath Sounds, Right: Clear and Equal Labor Evaluation Frequency: Occassional Monitor Mode: External Duration (sec)2399: 40-50 Quality: Mild Pattern: Normal: <= 5 Contractions in 10 Minutes Resting Tone [place]: Relaxed Heart Rate FHR Baseline Rate: 115 Monitor Mode: External US FHR Baseline Changes: No Baseline Change Variability: Moderate 6-25 bpm Accelerations: 15X15 Decelerations: Variable Category: Category I Pain Assessment Pain Scale: 4 Pain Presence: Intermittent Pain Type: Cramping; Pressure Pain Location: Abdomen; Back; Perineum Pain Goal: 3 Pain Relief Measures: Comfort Measures Datetime: 07/03/2016 06:00 Stage of : Antepartum Maternal Assessment Level of Consciousness: Fully Conscious DTR's/Clonus: DTRs 2+ Labor Evaluation Frequency: Occassional Monitor Mode: External Duration (sec)2399: 40-50 Quality: Mild Pattern: Normal: <= 5 Contractions in 10 Minutes Resting Tone [place]: Relaxed Heart Rate FHR Baseline Rate: 120 Monitor Mode: External US FHR Baseline Changes: No Baseline Change Variability: Moderate 6-25 bpm Accelerations: 15X15 Decelerations: None Category: Category I Pain Assessment Pain Scale: 6 Pain Presence: Intermittent Pain Type: Cramping; Pressure Pain Location: Abdomen; Back; Perineum Pain Goal: 3 Pain Relief Measures: Comfort Measures Datetime: 07/03/2016 05:00 Stage of : Antepartum Maternal Assessment Level of Consciousness: Fully Conscious DTR's/Clonus: DTRs 2+ Breath Sounds, Left: Clear and Equal Breath Sounds, Right: Clear and Equal Labor Evaluation Frequency: Occassional Monitor Mode: External Duration (sec)2399: 40-50 Quality: Mild Pattern: Normal: <= 5 Contractions in 10 Minutes Resting Tone [place]: Relaxed Heart Rate FHR Baseline Rate: 125 Monitor Mode: External US FHR Baseline Changes: No Baseline Change Variability: Moderate 6-25 bpm Accelerations: 15X15 Decelerations: Variable Category: Category II Pain Assessment Pain Scale: 6 Pain Presence: Intermittent Pain Type: Cramping; Pressure Pain Location: Abdomen; Back; Perineum Pain Goal: 3 Pain Relief Measures: Comfort Measures Datetime: 07/03/2016 04:25 Pain Presence: Intermittent Pain Type: Pressure Pain Assessment Comments: Pt c/o increased pressure in the perineum. Vaginal Exam Dilatation (cms): 0.0 Effacement (%): 40 Station: -4 Exam By: Dee Montemayor RN Vaginal Bleeding: None Cervix, Consistency: Firm Cervix, Position: Posterior Datetime: 07/03/2016 04:00 Stage of : Antepartum Maternal Assessment Level of Consciousness: Fully Conscious DTR's/Clonus: DTRs 2+ Labor Evaluation Frequency: Occassional Monitor Mode: External Duration (sec)2399: 40-50 Quality: Mild Pattern: Normal: <= 5 Contractions in 10 Minutes Resting Tone [place]: Relaxed Heart Rate FHR Baseline Rate: 130 Monitor Mode: External US FHR Baseline Changes: No Baseline Change Variability: Moderate 6-25 bpm Accelerations: 15X15 Decelerations: None Category: Category I Pain Assessment Pain Scale: 6 Pain Presence: Intermittent Pain Type: Cramping; Pressure Pain Location: Abdomen; Back; Perineum Pain Goal: 3 Pain Relief Measures: Comfort Measures Datetime: 07/03/2016 03:00 Stage of : Antepartum Maternal Assessment Level of Consciousness: Fully Conscious DTR's/Clonus: DTRs 2+ Breath Sounds, Left: Clear and Equal Breath Sounds, Right: Clear and Equal Labor Evaluation Frequency: Occassional Monitor Mode: External Duration (sec)2399: 40-50 Quality: Mild Pattern: Normal: <= 5 Contractions in 10 Minutes Resting Tone [place]: Relaxed Heart Rate FHR Baseline Rate: 120 Monitor Mode: External US FHR Baseline Changes: No Baseline Change Variability: Moderate 6-25 bpm Accelerations: 15X15 Decelerations: None Pain Assessment Pain Scale: 6 Pain Presence: Intermittent Pain Type: Cramping; Pressure Pain Location: Abdomen; Back; Perineum Pain Goal: 3 Pain Relief Measures: Comfort Measures Datetime: 07/03/2016 02:00 Stage of : Antepartum Labor Evaluation Frequency: Occassional Monitor Mode: External Duration (sec)2399: 40-50 Quality: Mild Pattern: Normal: <= 5 Contractions in 10 Minutes Resting Tone [place]: Relaxed Heart Rate FHR Baseline Rate: 120 Monitor Mode: External US FHR Baseline Changes: No Baseline Change Variability: Moderate 6-25 bpm Accelerations: 15X15 Decelerations: None Category: Category I Pain Assessment Pain Scale: 6 Pain Presence: Intermittent Pain Type: Cramping; Pressure Pain Location: Abdomen; Back; Perineum Pain Goal: 3 Pain Relief Measures: Comfort Measures Datetime: 07/03/2016 01:40 Vaginal Exam Dilatation (cms): 0.0 Effacement (%): 40 Station: -4 Exam By: Dee Montemayor RN Vaginal Bleeding: None Cervix, Consistency: Firm Cervix, Position: Posterior Datetime: 07/03/2016 01:00 Stage of : Antepartum Labor Evaluation Frequency: Occassional Monitor Mode: External Duration (sec)2399: 40-50 Quality: Mild Pattern: Normal: <= 5 Contractions in 10 Minutes Resting Tone [place]: Relaxed Heart Rate FHR Baseline Rate: 125 Monitor Mode: External US FHR Baseline Changes: No Baseline Change Variability: Moderate 6-25 bpm Accelerations: 15X15 Decelerations: None Category: Category I Pain Assessment Pain Scale: 6 Pain Presence: Intermittent Pain Type: Cramping; Pressure Pain Location: Abdomen; Back; Perineum Pain Goal: 3 Pain Relief Measures: Comfort Measures Datetime: 07/03/2016 00:33 Assessment Type: Admission Assessment Vaginal Bleeding: None Maternal Assessment Level of Consciousness: Fully Conscious DTR's/Clonus: DTRs 2+; No Clonus Headache: Denies Blurred Vision: No Respiratory Effort: Unlabored; Regular Rhythm; Equal Expansion Breath Sounds, Left: Clear and Equal Breath Sounds, Right: Clear and Equal Nausea/Vomiting: Denies RUQ Epigastric Pain: Denies Lower Extremities Edema: None Degree: None Upper Extremities Edema: None Degree: None Facial Edema: None Fall Risk Assessment History of Falling: (0) No Secondary Diagnosis: (0) No Ambulatory Aid: (0) Bedrest/Nurse Assist IV Therapy: (0) No Gait: (0) Normal/Bedrest/Immobile Mental Status: (0) Oriented to Own Ability Fall Score: 0 Fall Risk Score Definition: No Risk: No action required Labor Evaluation Frequency: Occassional Duration (sec)2399: 40 Quality: Mild Pattern: Normal: <= 5 Contractions in 10 Minutes Resting Tone [place]: Relaxed Heart Rate FHR Baseline Rate: 125 Variability: Moderate 6-25 bpm Accelerations: 10X10 Decelerations: None Category: Category I Pain Assessment Pain Scale: 6 Pain Presence: Intermittent Pain Type: Cramping; Pressure Pain Location: Abdomen; Back; Perineum Pain Goal: 3 Vaginal Exam Dilatation (cms): 0.0 Effacement (%): 40 Station: -4 Membrane Status: Intact Datetime: 07/03/2016 00:20 Time of Arrival: 07/02/2016 23:55 EGA: 29.6 Arrived By: Wheelchair Arrived From: Other Unit in Hospital Datetime: 07/02/2016 21:49 Fall Score: 0 Fall Risk Score Definition: No Risk: No action required Datetime: 07/02/2016 21:48 EGA: 29.6
== END 2016-07-27 03:45 | disposition left against medical advice (07) ==
LOC: OBT 00:05 → L-D 00:05 → OBT 01:22 → UNDOADMIN 01:22 → L-D 01:22 → OBT 03:45
PROVIDERS: ATTEND Obstetrics & Gynecology Obstetrics
DX: O60.03 Preterm labor without delivery, third trimester (principal); O09.213 Supervision of pregnancy with history of pre-term labor, third trimester; Z3A.33 33 weeks gestation of pregnancy; Z53.29 Procedure and treatment not carried out because of patient's decision for other reasons
CPT/HCPCS: 85025; 85610; 85730; 86592; 86850; 86900; 86901; 86920; 87340; G0463; J2274; J3010; J3105; J7120